=== PATIENT | male | born 1975 | race Caucasian/White ===

== ENCOUNTER 2019-06-03 11:22 | Emergency (ER) | payer SELFPAY ==
[~2019-06-03] VITALS: Ht 185.4 cm; Wt 83.9 kg
--- NOTE | 2019-06-03 11:27 | NUR ---
1123-- PT AMBULATED WITH MARKETING ADMINISTRATIVE ASSISTANT TO ER BED 3
--- NOTE | 2019-06-03 11:27 | NUR ---
DR. MORFIN BEDSIDE EVALUATING PT
[2019-06-03 11:32] VITALS: BP 148/100
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
[2019-06-03] MEDS ORDERED: NACL 0.9% 1,000 ML IV ONE (11:40)
--- NOTE | 2019-06-03 12:02 | NUR ---
PROVIDED URINAL TO PT FOR COLLECTION OF URINE.
[2019-06-03 12:10] LABS: BASOPHILS % (AUTO) 0.2 % (0.0-2.0); EOSINOPHILS # (AUTO) 0.1 K/uL (0-0.4); EOSINOPHILS % (AUTO) 1.3 % (0.0-4.0); HEMATOCRIT 46.3 % (36-52); HEMOGLOBIN 15.7 g/dL (12.0-18.0); LYMPHOCYTES # (AUTO) 0.9 K/uL (2.0-11.5); LYMPHOCYTES % (AUTO) 11.6 % (20.5-51.1); MEAN CORPUSCULAR HEMOGLOBIN 31 pg (27-31); MEAN CORPUSCULAR HGB CONC 34 g/dL (33-37); MEAN CORPUSCULAR VOLUME 91.6 fL (80-94); MONOCYTES # (AUTO) 0.6 K/uL (0.8-1.0); MONOCYTES % (AUTO) 7.6 % (1.7-9.3); NEUTROPHILS % (AUTO) 79.3 % (42.2-75.2); PLATELET COUNT (AUTO) 197 K/uL (140-450); RED BLOOD CELL COUNT(AUTO) 5.06 MIL/uL (4.20-6.10); RED CELL DISTRIBUTION WIDTH 13.7 % (11.6-13.7); WHITE BLOOD COUNT (AUTO) 7.5 K/uL (4.8-10.8)
--- NOTE | 2019-06-03 12:15 | NUR ---
DENIES STRAIGHT CATH , PT TRYING TO PEE AGAIN. URINAL AT THE BEDSIDE.
--- NOTE | 2019-06-03 12:25 | NUR ---
Gave some water to pt, Dr. Kelsey okay with it. pt refusing for straight cath.
[2019-06-03 12:27] LABS: PROTHROMBIN TIME 11.1 secs (10.8-13.4)
[2019-06-03 12:36] LABS: ANION GAP 11.7 (8-16); CARBON DIOXIDE 27.5 mmol/L (21-32); CHLORIDE 104 mmol/L (98-107); CREATININE 1.3 mg/dL (0.7-1.3); GFR ARICAN-AMERICAN 77 mL/min (>90); GLUCOSE 115 mg/dL (74-106); POTASSIUM 3.2 mmol/L (3.5-5.1); SODIUM SERUM 140 mmol/L (136-145); UREA NITROGEN, BLOOD 15 mg/dL (7-18)
[2019-06-03 12:42] LABS: ASPARTATE AMINOTRANSFERASE 27 U/L (15-37); TOTAL BILIRUBIN 0.6 mg/dL (0.0-1.0)
--- NOTE | 2019-06-03 12:45 | NUR ---
PT TAKEN TO CT
[2019-06-03 14:05] VITALS: BP 130/82
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
== END 2019-06-03 14:05 ==
LOC: MED 11:22 → EDBD 11:22 → MED 14:05
DX: S16.1XXA Strain of muscle, fascia and tendon at neck level, initial encounter (principal); F15.10 Other stimulant abuse, uncomplicated; M25.562 Pain in left knee; Z02.89 Encounter for other administrative examinations; Z90.49 Acquired absence of other specified parts of digestive tract; V89.2XXA Person injured in unspecified motor-vehicle accident, traffic, initial encounter; Y93.89 Activity, other specified; Y92.89 Other specified places as the place of occurrence of the external cause; Y99.8 Other external cause status
CPT/HCPCS: 36415; 70450; 71045; 72125; 74177; 80053; 85025; 85610; 85730; 86886; 86900; 86901; 99284; G0482; J7030; Q0092; Q9967